=== PATIENT | female | born 1995 | race Caucasian/White ===

== ENCOUNTER 2020-07-07 01:28 | Emergency (ER) | payer OTHER ==
[~2020-07-07] VITALS: Ht 170.2 cm; Wt 70.3 kg
[2020-07-07] MEDS ORDERED: HYDROCODONE/APAP 7.5MG-325MG 1 EA TAB PO PRN (01:45)
[2020-07-07] MEDS ORDERED: NAPROXEN250 MG PO (01:45)
[2020-07-07] MEDS ORDERED: ROBAXIN-750750 MG PO (01:45)
[2020-07-07] MEDS ORDERED: DIAZEPAM 5 MG TAB PO SCH (01:45)
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
[2020-07-07 03:36] VITALS: BP 119/59
== END 2020-07-07 03:45 | disposition home or self-care (01) ==
LOC: ER 02:00
DX: M54.2 Cervicalgia (principal); V43.62XA Car passenger injured in collision with other type car in traffic accident, initial encounter; Y92.488 Other paved roadways as the place of occurrence of the external cause
CPT/HCPCS: 99283